=== PATIENT | female | born 1990 | race African-American/Black ===

== ENCOUNTER 2019-09-18 18:49 | Emergency (ER) | payer OTHER, SELFPAY ==
--- NOTE | ~2019-09-18 | XR_ITS ---
XR ankle LT min 3V 09/18/2019 19:55 INDICATION: Left ankle pain PROCEDURE: 4 views left ankle COMPARISON: No prior studies for comparison. FINDINGS: Fracture, dislocation or subluxation is not identified. The soft tissues appear within norm al limits. No foreign bodies are identified. IMPRESSION: 1: NO ACUTE BONE OR JOINT ABNORMALITY IDENTIFIED. Reviewed, dictated and finalized at location A.
[2019-09-18 18:57] VITALS: BP 148/107; PULSE 72; RESP 15; TEMP 37; O2SAT 100
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
[2019-09-18] MEDS: TETANUS,DIPHTHERIA,AC PERTUSSIS ADULT (0.5 ML) BOOSTRIX IM (20:32)
[2019-09-18 21:48] VITALS: BP 139/77; PULSE 70; RESP 16; O2SAT 99
== END 2019-09-18 22:09 | disposition home or self-care (01) ==
PROVIDERS: Emergency Provider Nurse Practitioner Family
DX: L03.116 Cellulitis of left lower limb (principal); S99.912A Unspecified injury of left ankle, initial encounter; R03.0 Elevated blood-pressure reading, without diagnosis of hypertension; Z23 Encounter for immunization; V09.20XA Pedestrian injured in traffic accident involving unspecified motor vehicles, initial encounter
CPT/HCPCS: 73610; 81025; 90471; 90715; 99283; A9270

== ENCOUNTER 2019-11-23 20:05 | Emergency (ER) | payer OTHER, SELFPAY ==
--- NOTE | ~2019-11-23 | XR_ITS ---
EXAMINATION: XR chest 2V DATE: 11/23/2019 21:12 INDICATION: Chest pain TECHNIQUE: PA and lateral views of the chest are obtained. COMPARISON: None available FINDINGS: There are minimal airspace opacities of the lung bases. There is no pleural effusion or pne umothorax. The cardiomediastinal silhouette is normal. The visualized bones and soft tissues are unre markable. IMPRESSION: 1. Minimal airspace opacities of the lung bases, consistent with atelectasis versus pneumonia. Reviewed, dictated and finalized at location A. IMPRESSION: 1. Minimal airspace opacities of the lung bases, consistent with atelectasis ve rsus pneumonia.
[2019-11-23 20:07] VITALS: BP 152/93; PULSE 89; RESP 18; TEMP 35.8; O2SAT 99
--- NOTE | 2019-11-23 20:11 | ECG_ITS ---
Measurements Intervals [place] Rate: 78 P: 33 WI: 166 QRS: 39 QRSD: 97 T: 25 QT: 402 QTc: 458 Interpretive Statements SINUS RHYTHM DELAYED PRECORDIAL R/S TRANSITION BORDERLINE ECG Electronically Signed On 11-24-2019 6:38:29 CDT by Ke Giron D.O.
[2019-11-23 20:28] LABS: Basophils Absolute Auto 0.1 K/mm3 (0.0-0.1); Basophils Percent Auto 0.9 % (0.2-1.2); Eosinophils Absolute Auto 0.3 K/mm3 (0-0.3); Eosinophils Percent Auto 2.8 % (0-4.4); Hematocrit 42.2 % (37.0-47.0); Hemoglobin 13.5 g/dL (12.0-15.0); Immature Granulocyte Absolute 0.02 K/mm3 (0.00-0.031); Immature Granulocyte Percent A 0.2 % (0-0.5); Lymphocytes Absolute Auto 2.69 K/mm3 (0.9-3.2); Lymphocytes Percent Auto 27.9 % (18.3-44.2); Mean Corpuscular Hemoglobin 28.4 pg (26-34); Mean Corpuscular Volume 88.7 fl (80-100); Mean Platelet Volume 10.5 fl (7.4-10.4); Monocytes Absolute Auto 0.8 K/mm3 (0.1-0.6); Monocytes Percent Auto 8.1 % (2.6-8.5); Neutrophils Absolute Auto 5.8 K/mm3 (1.3-6.7); Neutrophils Percent Auto 60.1 % (45.5-73.1); Platelet Count Result 362 k/mm3 (150-375); Red Blood Count 4.76 M/mm3 (4.2-5.4); Red Cell Distribution Width 14.5 % (11.5-14.5); White Blood Count 9.6 K/mm3 (4.5-10.0)
[2019-11-23 20:38] LABS: Prothrombin Time 13.1 Seconds (11.1-14.7)
[2019-11-23 20:39] LABS: Partial Thromboplastin Time 26.8 SECONDS (22.3-36.8)
[2019-11-23 20:43] LABS: Anion Gap 12 mmol/L (8-16); Blood Urea Nitrogen 9 mg/dL (7-17); Calcium 9.4 mg/dL (8.4-10.2); Carbon Dioxide 24 mmol/L (22-30); Chloride 103 mmol/L (98-107); Estimated Glomerular Filt Rate > 60; Glucose 127 mg/dL (65-105); Potassium 3.7 mmol/L (3.4-5.0); Sodium 139 mmol/L (137-145)
[2019-11-23 20:55] LABS: Troponin I < 0.012 ng/mL (0.000-0.034)
[2019-11-23 22:49] VITALS: BP 134/80; PULSE 84; RESP 20; O2SAT 100; O2SAT 99
[2019-11-23] MEDS: KETOROLAC 30 MG/ML VIAL (*BKC) IV PUSH (23:14)
[2019-11-23 23:15] VITALS: BP 142/99; PULSE 76; RESP 16; O2SAT 100
[2019-11-23 23:34] LABS: D Dimer 0.32 ug/mL (<0.48)
[2019-11-23 23:44] VITALS: TEMP 35.8
[2019-11-23 23:45] LABS: Troponin I < 0.012 ng/mL (0.000-0.034)
--- NOTE | 2019-11-24 00:39 | ED.CHESTPAIN ---
HPI - Chest Pain General Chief Complaint: Chest Pain Stated Complaint: chest pain Time Seen by Provider: 11/23/19 22:42 History of Present Illness HPI narrative: Patient is a 29-year-old female who presents ER with right-sided chest pain. Upper and anterior chest wall as well as under the right breast. Pain is worse with physical movement and deep breath. Improves modestly with [id number] pain medication. No exertional component. Denies fevers or sweats or chills. No recent runny nose/sore throat/productive cough. No recent long distance travel, no hemoptysis, she is not on hormones, no recent surgeries. No lower extremity edema. Related Data Home Medications Medication Instructions Recorded Confirmed albuterol sulfate INHALATION 11/23/19 Allergies Allergy/AdvReac Type Severity Reaction Status Date / Time No Known Allergies Allergy Verified 09/18/19 19:05 Review of Systems Review of Systems: All systems reviewed & are unremarkable except as noted in HPI and below Constitutional: Constitutional: Denies chills, Denies fever(s) and Denies weakness ENT: Denies nasal congestion and Denies sore throat Cardiovascular: Cardiovascular: Reports chest pain, Denies rapid heart rate and Denies radiating jaw, neck or arm pain Respiratory: Respiratory: Denies chest congestion, Denies cough and Denies dyspnea Gastrointestinal: Gastrointestinal: Denies abdominal pain, Denies nausea and Denies vomiting Musculoskeletal: Musculoskeletal: Denies back pain and Denies muscle cramps PMFSH Past Medical History Medical History (Updated 11/24/19 @ 00:43 by Dino Valencia MD) Healthy female adult Surgical History Surgical History (Updated 11/24/19 @ 00:40 by Dino Valencia MD) No history of previous surgery Social History Social History (Updated 11/24/19 @ 00:40 by Dino Valencia MD) Smoking status: Current every day smoker Gender identity (if verbalized by the patient): Female Exam Narrative: Exam Narrative: GENERAL: Well-appearing, well-nourished, and in no acute distress. HEAD: Normocephalic, atraumatic. ENT: Mucous membranes moist. CHEST: Clear to auscultation. No respiratory distress. HEART: Regular rate and rhythm. Normal peripheral pulses. ABDOMEN: Soft, nontender, nondistended. EXTREMITIES: Normal range of motion. No edema. NEURO: Alert and oriented x3. PSYCH: Normal mood and affect. Course Course Emergency Course: Informed of results. Pain improved with Toradol. Discharge home with supportive therapy. Vital Signs Vital signs: Vital Signs Temperature 96.4 F L 11/23/19 20:07 Pulse Rate 89 11/23/19 20:07 Respiratory Rate 18 11/23/19 20:07 Blood Pressure 152/93 H 11/23/19 20:07 Pulse Oximetry 99 11/23/19 20:07 Temperature 96.4 F L 11/23/19 23:44 Pulse Rate 76 11/23/19 23:15 Respiratory Rate 16 11/23/19 23:15 Blood Pressure 142/99 H 11/23/19 23:15 Pulse Oximetry 100 11/23/19 23:15 MDM - Chest Pain Lab Data Result diagrams: 11/23/19 20:22 11/23/19 20:22 Labs: Lab Results 11/23/19 11/23/19 11/23/19 Range/Units 20:22 20:22 20:22 WBC 9.6 (4.5-10.0) K/mm3 RBC 4.76 (4.2-5.4) M/mm3 Hgb 13.5 (12.0-15.0) g/dL Hct 42.2 (37.0-47.0) % MCV 88.7 (80-100) fl MCH 28.4 (26-34) pg MCHC 32.0 (32-36) g/dl RDW 14.5 (11.5-14.5) % Plt Count 362 (150-375) k/mm3 MPV 10.5 H (7.4-10.4) fl Immature Gran % (Auto) 0.2 (0-0.5) % Neut % (Auto) 60.1 (45.5-73.1) % Lymph % (Auto) 27.9 (18.3-44.2) % [place] % (Auto) 8.1 (2.6-8.5) % Eos % (Auto) 2.8 (0-4.4) % Baso % (Auto) 0.9 (0.2-1.2) % Lymph # (Auto) 2.69 (0.9-3.2) K/mm3 [place] # (Auto) 0.8 H (0.1-0.6) K/mm3 Eos # (Auto) 0.3 (0-0.3) K/mm3 Baso # (Auto) 0.1 (0.0-0.1) K/mm3 Abs Immat Gran (auto) 0.02 (0.00-0.031) K/mm3 Absolute Neuts (auto) 5.8 (1.3-6.7) K/mm3 Absolute Nucle
[2019-11-24 00:53] VITALS: BP 118/72; PULSE 75; RESP 15; TEMP 36.6; O2SAT 100
== END 2019-11-24 00:57 | disposition home or self-care (01) ==
PROVIDERS: Emergency Provider Emergency Medicine; Referring Provider Emergency Medicine
DX: R09.1 Pleurisy (principal)
CPT/HCPCS: 36415; 71046; 80048; 84484; 85025; 85380; 85610; 85730; 93005; 96374; 99284; J1885

== ENCOUNTER 2019-12-15 15:02 | Emergency (ER) | payer OTHER, SELFPAY ==
--- NOTE | ~2019-12-15 | XR_ITS ---
EXAMINATION: XR chest 2V DATE: 12/15/2019 16:16 INDICATION: Right chest pain. TECHNIQUE: Frontal and lateral views of the chest were obtained. COMPARISON: Chest 2 views 11/23/2019 FINDINGS: The chest demonstrates clear lungs without pneumonia, pleural effusion, or pneumothorax. Th e heart size is normal. IMPRESSION: 1. No acute cardiopulmonary disease. Reviewed, dictated and finalized at location A.
[2019-12-15 15:04] VITALS: BP 158/60; PULSE 88; RESP 18; TEMP 36.1; O2SAT 100
--- NOTE | 2019-12-15 16:23 | ED.GENADULT ---
HPI - General Adult General Chief complaint: Unspecified Stated complaint: chest pain Time Seen by Provider: 12/15/19 15:59 Source: patient History of Present Illness HPI narrative: 29-year-old female presents to emergency department for intermittent right-sided chest pain for the past month, progressively worsening. Patient states she took naproxen about 1 month ago to help with the pain. She states pain is worse with deep breaths. Patient states the pain wraps around to the right side of her chest. No shortness of breath. No fever or chills. No abdominal pain. No nausea or vomiting. Last menstrual period was around November 30. Related Data Home Medications Medication Instructions Recorded Confirmed albuterol sulfate INHALATION 11/23/19 Allergies Allergy/AdvReac Type Severity Reaction Status Date / Time No Known Allergies Allergy Verified 12/15/19 16:23 Review of Systems Review of Systems: Narrative: CONSTITUTIONAL: Denies fever, chills, or sweats. EYES: Denies visual changes, redness, or discharge. ENT: Denies rhinorrhea, congestion, sore throat, or otalgia. CARDIOVASCULAR: Reports chest pain, denies palpitations, and denies edema. RESPIRATORY: Denies cough or dyspnea. GASTROINTESTINAL: Denies abdominal pain, nausea, vomiting, or diarrhea. GENITOURINARY: Denies dysuria or hematuria. SKIN: Denies rash or itching. MUSCULOSKELETAL: Denies back pain, joint pain, or myalgia. NEUROLOGIC: Denies headache, numbness, dizziness, or weakness. PSYCHIATRIC: Denies anxiety or depression. PMFSH Past Medical History Medical History Healthy female adult Surgical History Surgical History No history of previous surgery Social History Social History Smoking status: Current every day smoker Gender identity (if verbalized by the patient): Female Exam Narrative: Exam Narrative: GENERAL: Well-appearing, well-nourished, and in no acute distress. HEAD: Normocephalic, atraumatic. EYES: PERRLA and EOMI. ENT: Nares clear, no rhinorrhea or epistaxis. Mucous membranes moist. NECK: Supple. CHEST: Clear to auscultation. No respiratory distress. HEART: Regular rate and rhythm. No murmur heard. Normal peripheral pulses. ABDOMEN: Soft, nontender, nondistended, normal active bowel sounds. EXTREMITIES: Normal range of motion. No edema. SKIN: Warm, dry, no rash. NEURO: No focal deficits. Alert and oriented x3. PSYCH: Normal mood and affect. Course Reevaluation(s) Reevaluation #1: 1810 -reevaluated patient, no new complaints. Pain likely musculoskeletal, patient states the pain is worse at work. Low suspicion for ACS at this time. Additionally low suspicion for PE at this time. Counseled patient to follow-up with a medical provider within 1 week. Return to emergency department if symptoms persist, worsen, or other concerns. Vital Signs Vital signs: Vital Signs Temperature 36.1 C L 12/15/19 15:04 Pulse Rate 88 12/15/19 15:04 Respiratory Rate 18 12/15/19 15:04 Blood Pressure 158/60 H 12/15/19 15:04 Pulse Oximetry 100 12/15/19 15:04 Temperature 36.7 C 12/15/19 18:25 Pulse Rate 74 12/15/19 18:25 Respiratory Rate 18 12/15/19 18:25 Blood Pressure 124/77 12/15/19 18:25 Pulse Oximetry 99 12/15/19 18:25 Medical Decision Making Medical Records Medical records reviewed: Yes I reviewed the patient's medical records. Vital Signs Vital Signs: Vital Signs Temperature 36.1 C L 12/15/19 15:04 Pulse Rate 88 12/15/19 15:04 Respiratory Rate 18 12/15/19 15:04 Blood Pressure 158/60 H 12/15/19 15:04 Pulse Oximetry 100 12/15/19 15:04 Temperature 36.7 C 12/15/19 18:25 Pulse Rate 74 12/15/19 18:25 Respiratory Rate 18 12/15/19 18:25 Blood Pressure 124/77 12/15/19 18:25 Pulse Oximetry 99 12/15/19 18:25
--- NOTE | 2019-12-15 16:26 | ECG_ITS ---
Measurements Intervals [place] Rate: 73 P: 55 [place]: 169 QRS: 20 QRSD: 98 T: 15 QT: 387 QTc: 427 Interpretive Statements SINUS RHYTHM BASELINE ARTIFACT- I, III, V5-V6 NORMAL ECG Electronically Signed On 12-15-2019 16:45:58 CDT by Ke Giron D.O.
[2019-12-15] MEDS: KETOROLAC (*BKC) 60 MG/2 ML VIAL 30 MG IM (17:00)
[2019-12-15 18:25] VITALS: BP 124/77; PULSE 74; RESP 18; TEMP 36.7; O2SAT 99
== END 2019-12-15 18:26 | disposition home or self-care (01) ==
PROVIDERS: Emergency Provider Emergency Medicine
DX: R07.89 Other chest pain (principal); F17.200 Nicotine dependence, unspecified, uncomplicated
CPT/HCPCS: 71046; 93005; 96372; 99283; J1885

== ENCOUNTER 2020-03-24 13:59 | Emergency (ER) | payer OTHER, SELFPAY ==
--- NOTE | ~2020-03-24 | CT_ITS ---
EXAMINATION: CT brain wo con DATE: 03/24/2020 15:18 INDICATION: Headache. Syncope. TECHNIQUE: Computed tomography (CT) of the head was performed without intravenous contrast. The mA wa s adjusted according to patient size. Iterative reconstruction technique was employed. The dose-lengt h product was 605.33 mGy-cm. COMPARISON: None FINDINGS: There is no intracranial hemorrhage, acute infarction, or abnormal intracranial mass lesion . The ventricles are normal in size. The orbits are normal. There is mild mucosal thickening in the e thmoid sinuses. The mastoid air cells are normal. IMPRESSION: 1. Normal brain. Reviewed, dictated and finalized at location A. NCE INTERN IMPRESSION: 1. Normal brain.
--- NOTE | ~2020-03-24 | CT_ITS ---
EXAMINATION: CT cervical spine wo [facility] EXAM DATE: 03/24/2020 15:18 INDICATION: fall syncope. Head injury. TECHNIQUE: Spiral CT of the cervical spine was performed without contrast. Axial images were reviewe d. Coronal and sagittal reformatted images were also reviewed. The dose-length product (DLP) for thi s examination was 433.68 mGy-cm. The exposure was tailored according to patient size (auto mA exposu re control), and iterative reconstruction (ASIR) was used as additional dose reduction technique. ere is no prior study for comparison. FINDINGS: There is no evidence of acute cervical fracture. The odontoid process is intact. Pre-dens space is normal. Prevertebral soft tissue is normal. There are no soft tissue abnormalities identi fied. There is no disc space widening or traumatic vertebral body subluxation suspected. Vertebral body and disc heights are well-maintained. No more than mild cervical spondylosis. A detailed level b y level evaluation of spondylosis can be added as addendum if requested. IMPRESSION: 1. No acute cervical fracture. Reviewed, dictated and finalized at location B. OR VIDEOTAPE EDITOR
[2020-03-24 14:26] VITALS: BP 151/95; PULSE 100; RESP 18; TEMP 36.3; O2SAT 99
--- NOTE | 2020-03-24 14:42 | ED.GENADULT ---
HPI - General Adult General Chief complaint: Headache Stated complaint: headache post fall down 10 stairs Time Seen by Provider: 03/24/20 14:32 Source: patient Mode of arrival: ambulatory Limitations: no limitations History of Present Illness HPI narrative: Patient is a 29-year-old female who presents to emergency department for evaluation of head injury and neck pain after falling down 10 stairs patient notes having tripped and gone down the stairs striking the face and head and injuring the neck had syncope after the head injury patient on arrival to emergency department in the room and no obvious distress does not appear uncomfortable patient notes she has had nausea lightheadedness dizziness and light and noise sensitivity since the injury has not been seen presents for private vehicle Related Data Home Medications Medication Instructions Recorded Confirmed albuterol sulfate INHALATION 11/23/19 Allergies Allergy/AdvReac Type Severity Reaction Status Date / Time No Known Allergies Allergy Verified 12/15/19 16:23 Review of Systems Review of Systems: All systems reviewed & are unremarkable except as noted in HPI and below PMFSH Past Medical History Medical History Healthy female adult Surgical History Surgical History No history of previous surgery Social History Social History Smoking status: Current every day smoker Gender identity (if verbalized by the patient): Female Exam Narrative: Exam Narrative: GENERAL: Well-appearing, well-nourished, and in no acute distress. HEAD: Normocephalic, atraumatic. EYES: PERRLA and EOMI. ENT: Nares clear, no rhinorrhea or epistaxis. Mucous membranes moist. NECK: Supple. No adenopathy or masses. CHEST: Clear to auscultation. No respiratory distress. No wheezes rales or rhonchi HEART: Regular rate and rhythm. No murmur heard. EXTREMITIES: Normal range of motion. No edema. Midline cervical tenderness remainder of spine nontender SKIN: Warm, dry, no rash. NEURO: No focal deficits. Alert and oriented x3. Cranial nerves II through XII grossly intact. Normal speech. Normal gait PSYCH: Normal mood and affect. Course Course Emergency Course: Patient evaluated for head injury and syncope no high risk changes in the imaging will be discharged home managed on outpatient basis provided with reasons to return vital signs and ABCs intact and stable Vital Signs Vital signs: Vital Signs Temperature 97.3 F L 03/24/20 14:26 Pulse Rate 100 03/24/20 14:26 Respiratory Rate 18 03/24/20 14:26 Blood Pressure 151/95 H 03/24/20 14:26 Pulse Oximetry 99 03/24/20 14:26 Temperature 97.3 F L 03/24/20 14:26 Pulse Rate 100 03/24/20 14:26 Respiratory Rate 18 03/24/20 14:26 Blood Pressure 151/95 H 03/24/20 14:26 Pulse Oximetry 99 03/24/20 14:26 Medical Decision Making MDM Narrative Medical decision making narrative: Patient presented with head injury and syncope no high risk changes in the imaging will be discharged home felt to be safe for outpatient reevaluation hemodynamically stable Vital Signs Vital Signs: Vital Signs Temperature 97.3 F L 03/24/20 14:26 Pulse Rate 100 03/24/20 14:26 Respiratory Rate 18 03/24/20 14:26 Blood Pressure 151/95 H 03/24/20 14:26 Pulse Oximetry 99 03/24/20 14:26 Temperature 97.3 F L 03/24/20 14:26 Pulse Rate 100 03/24/20 14:26 Respiratory Rate 18 03/24/20 14:26 Blood Pressure 151/95 H 03/24/20 14:26 Pulse Oximetry 99 03/24/20 14:26 Imaging Data Radiologist's impression: ITS Impressions Head CT 03/24/20 15:23 IMPRESSION: 1. Normal brain. Cervical Spine CT 03/24/20 15:27 IMPRESSION: 1. No acute cervical fracture. Discharge Plan Discharge Clinical Impression: Headache, Sy
[2020-03-24 16:08] VITALS: BP 117/65; PULSE 78; RESP 16; O2SAT 100
== END 2020-03-24 16:09 | disposition home or self-care (01) ==
PROVIDERS: Emergency Provider Emergency Medicine
DX: S16.1XXA Strain of muscle, fascia and tendon at neck level, initial encounter (principal); R55 Syncope and collapse; R51.9 Headache, unspecified; F17.290 Nicotine dependence, other tobacco product, uncomplicated; W10.9XXA Fall (on) (from) unspecified stairs and steps, initial encounter
CPT/HCPCS: 70450; 72125; 99284

== ENCOUNTER 2021-05-08 10:36 | Emergency (ER) | payer OTHER, SELFPAY ==
--- NOTE | ~2021-05-08 | US_ITS ---
EXAMINATION: US OB <=14 wk fetus w TV DATE: 05/08/2021 12:16 INDICATION: Pelvic pain and spotting during first trimester . TECHNIQUE: Real-time pelvic ultrasound utilizing both a transvaginal and transabdominal probe was pe rformed. The interpreting radiologist was not present for the study. COMPARISON: None. FINDINGS: The uterus measures 8.4 x 4.1 x 4.4 cm. There is an intrauterine gestational sac. A yolk sac is iden tified but no pole yet discernible. The mean sac diameter measures 6 mm. The right ovary measures 2.9 x 1.6 x 1.7 cm. The left ovary measures 3.8 x 1.8 x 1.4 cm. 1.5 cm thick -walled corpus luteum cyst in the left ovary. There is an additional 2.1 cm anechoic left ovarian cys t. There is no free fluid in the pelvis. IMPRESSION: 1. 6 mm intrauterine gestational sac with tiny yolk sac but no discernible pole yet apparent li gallito due to early stage of .. Reviewed, dictated and finalized at location A. IMPRESSION: 1. 6 mm intrauterine gestational sac with tiny yolk sac but no discernible feta l pole yet apparent likely due to early stage of ..
[2021-05-08 10:43] VITALS: BP 142/92; PULSE 76; RESP 20; TEMP 36.9; O2SAT 100
--- NOTE | 2021-05-08 11:38 | PC.NURSE ---
pt. to XR
[2021-05-08 12:14] LABS: Basophils Absolute Auto 0.1 K/mm3 (0.0-0.1); Basophils Percent Auto 0.8 % (0.2-1.2); Eosinophils Absolute Auto 0.1 K/mm3 (0-0.3); Eosinophils Percent Auto 0.8 % (0-4.4); Hematocrit 41.9 % (37.0-47.0); Hemoglobin 13.4 g/dL (12.0-15.0); Immature Granulocyte Absolute 0.01 K/mm3 (0.00-0.031); Immature Granulocyte Percent A 0.1 % (0-0.5); Lymphocytes Absolute Auto 2.07 K/mm3 (0.9-3.2); Mean Corpuscular Hemoglobin 28.8 pg (26-34); Mean Corpuscular Volume 89.9 fl (80-100); Monocytes Absolute Auto 0.7 K/mm3 (0.1-0.6); Monocytes Percent Auto 9.4 % (2.6-8.5); Neutrophils Absolute Auto 4.3 K/mm3 (1.3-6.7); Neutrophils Percent Auto 59.9 % (45.5-73.1); Platelet Count Result 341 k/mm3 (150-375); Red Blood Count 4.66 M/mm3 (4.2-5.4); Red Cell Distribution Width 14.1 % (11.5-14.5); White Blood Count 7.1 K/mm3 (4.5-10.0)
[2021-05-08 12:15] VITALS: BP 147/89; PULSE 73; RESP 17; O2SAT 99
[2021-05-08 12:40] VITALS: BP 137/85; PULSE 75; RESP 21; O2SAT 98
[2021-05-08 12:41] VITALS: BP 150/69; BP 154/91; BP 162/94; PULSE 69; PULSE 84; PULSE 88
--- NOTE | 2021-05-08 12:53 | ED.FEMALEGU ---
HPI - Female Genitourinary General Chief complaint: Vaginal Bleeding Stated complaint: vag bld, 6 wks preg Time Seen by Provider: 05/08/21 11:17 Source: patient History of Present Illness HPI Narrative: Patient presents with vaginal bleeding she is between 6 to 8 weeks she is unsure of her last LMP. She is coming today for lower abdominal cramping and vaginal bleeding. She describes spotting. She denies any chest pain lightheadedness, dizziness, diaphoresis. She denies any urinary symptoms. Related Data Home Medications Medication Instructions Recorded Confirmed albuterol sulfate INHALATION 11/23/19 Allergies Allergy/AdvReac Type Severity Reaction Status Date / Time No Known Allergies Allergy Verified 12/15/19 16:23 Review of Systems Review of Systems: CONSTITUTIONAL: Denies fever, chills, or sweats. EYES: Denies visual changes, redness, or discharge. ENT: Denies rhinorrhea, congestion, sore throat, or otalgia. CARDIOVASCULAR: Denies chest pain, palpitations, or edema. RESPIRATORY: Denies cough or dyspnea. GASTROINTESTINAL: Denies abdominal pain, nausea, vomiting, or diarrhea. GENITOURINARY: Denies dysuria or hematuria. SKIN: Denies rash or itching. MUSCULOSKELETAL: Denies back pain, joint pain, or myalgia. NEUROLOGIC: Denies headache, numbness, dizziness, or weakness. PSYCHIATRIC: Denies anxiety or depression. All systems reviewed & are unremarkable except as noted in HPI and below PMFSH Past Medical History Medical History Healthy female adult Surgical History Surgical History No history of previous surgery Social History Social History Smoking status: Current every day smoker Gender identity (if verbalized by the patient): Female Exam Narrative: GENERAL: Well-appearing, well-nourished, and in no acute distress. HEAD: Normocephalic, atraumatic. EYES: PERRLA and EOMI. ENT: Nares clear, no rhinorrhea or epistaxis. Mucous membranes moist. NECK: Supple. No masses. No JVD CHEST: Clear to auscultation. No respiratory distress. No wheezes rales or rhonchi HEART: Regular rate and rhythm. No murmur heard. Normal peripheral pulses. ABDOMEN: Soft, nontender, nondistended, normal active bowel sounds. EXTREMITIES: Normal range of motion. No edema. SKIN: Warm, dry, no rash. NEURO: No focal deficits. Alert and oriented x3. PSYCH: Normal mood and affect. Course Reevaluation(s) Reevaluation #1: Patient resting comfortably results and plan reviewed with patient. Patient comfortable outpatient plan. Date: 05/08/21 Time: 12:54 Vital Signs Vital signs: Vital Signs Temperature 36.9 C 05/08/21 10:43 Pulse Rate 76 05/08/21 10:43 Respiratory Rate 20 05/08/21 10:43 Blood Pressure 142/92 H 05/08/21 10:43 Pulse Oximetry 100 05/08/21 10:43 Temperature 36.9 C 05/08/21 10:43 Pulse Rate 81 05/08/21 13:03 Respiratory Rate 14 05/08/21 13:03 Blood Pressure 135/81 05/08/21 13:03 Pulse Oximetry 100 05/08/21 13:03 MDM - Female Genitourinary MDM Narrative Medical decision making narrative: H&P as above, vs with hypertension. Patient has multiple prior hypertensive, blood pressures documented. Pt looks clinically well, exam reassuring, labs Rh+, img with likely early IUP, additional labs/img considered, symptomatic relief available as needed, on reevaluation pt continues to looks clinically well. Suspect that miscarriage, dns significant hemorrhage, ectopic. plan to tx/monitor as op w/ pcm f/u findings/plan discussed with pt, pt agree/comfortable with plan, return precautions given Lab Data Result diagrams: 05/08/21 12:07 Labs: Lab Results 05/08/21 05/08/21 05/08/21 Range/Units 12:07 12:07 12:07 WBC 7.1 (4.5-10.0) K/mm3 RBC 4.66 (4.2-5.4) M/mm3 Hgb 13.4 (12.0-15.0) g/d
[2021-05-08 13:03] VITALS: BP 135/81; PULSE 81; RESP 14; O2SAT 100
== END 2021-05-08 13:10 | disposition home or self-care (01) ==
PROVIDERS: Emergency Provider Emergency Medicine
DX: O20.0 Threatened abortion (principal); O16.1 Unspecified maternal hypertension, first trimester; O99.331 Smoking (tobacco) complicating pregnancy, first trimester; F17.200 Nicotine dependence, unspecified, uncomplicated; Z3A.01 Less than 8 weeks gestation of pregnancy
CPT/HCPCS: 36415; 76801; 76817; 84702; 85025; 85461; 99284

== ENCOUNTER 2021-08-20 17:40 | Emergency (ER) | payer OTHER, SELFPAY ==
--- NOTE | ~2021-08-20 | XR_ITS ---
EXAMINATION: XR chest 2V Exam Date/Time: 08/20/2021 18:20 CDT HISTORY: MID-LEFT SIDED CP, HTN, N/HEADACHE TODAY Comparison: 12/15/2019. RESULT: Lines, tubes, and devices: None. Lungs and pleura: Clear. Cardiomediastinal silhouette: Stable cardiomediastinal silhouette. Other: No acute osseous or upper abdominal finding. IMPRESSION: No acute cardiopulmonary process. Reviewed, dictated and finalized at location K.
--- NOTE | 2021-08-20 17:43 | ECG_ITS ---
Measurements Intervals [place] Rate: 70 P: 36 NM: 154 QRS: 15 QRSD: 87 T: 27 QT: 457 QTc: 493 Interpretive Statements SINUS RHYTHM MINIMAL Q WAVES- INFERIOR LEADS BASELINE ARTIFACT- II, III, AVF BORDERLINE ECG Electronically Signed On 08-20-2021 21:06:54 CDT by Ke Giron D.O.
[2021-08-20 17:46] VITALS: BP 193/99; PULSE 64; RESP 16; O2SAT 100
[2021-08-20 17:59] LABS: Basophils Absolute Auto 0.1 K/mm3 (0.0-0.1); Eosinophils Percent Auto 0.5 % (0-4.4); Hematocrit 45.3 % (37.0-47.0); Hemoglobin 14.5 g/dL (12.0-15.0); Immature Granulocyte Absolute 0.02 K/mm3 (0.00-0.031); Immature Granulocyte Percent A 0.2 % (0-0.5); Lymphocytes Absolute Auto 1.98 K/mm3 (0.9-3.2); Lymphocytes Percent Auto 24.5 % (18.3-44.2); Mean Corpuscular Hemoglobin 27.6 pg (26-34); Mean Corpuscular Volume 86.3 fl (80-100); Mean Platelet Volume 9.7 fl (7.4-10.4); Monocytes Absolute Auto 0.7 K/mm3 (0.1-0.6); Monocytes Percent Auto 8.5 % (2.6-8.5); Neutrophils Absolute Auto 5.3 K/mm3 (1.3-6.7); Neutrophils Percent Auto 65.3 % (45.5-73.1); Platelet Count Result 344 k/mm3 (150-375); Red Blood Count 5.25 M/mm3 (4.2-5.4); Red Cell Distribution Width 15.6 % (11.5-14.5); White Blood Count 8.1 K/mm3 (4.5-10.0)
[2021-08-20 18:08] LABS: Alanine Aminotransferase 121 U/L (6-35); Albumin Level 4.8 g/dL (3.5-5.1); Alkaline Phosphatase 134 U/L (38-126); Anion Gap 12 mmol/L (8-16); Aspartate Amino Transferase 151 U/L (14-36); Blood Urea Nitrogen 8 mg/dL (7-17); Calcium 9.2 mg/dL (8.4-10.2); Carbon Dioxide 24 mmol/L (22-30); Chloride 100 mmol/L (98-107); Estimated CRCL calculation 142 ml/min; Estimated Glomerular Filt Rate > 60; Glucose 98 mg/dL (65-110); Lipase 124 U/L (23-300); Potassium 3.7 mmol/L (3.4-5.0); Sodium 136 mmol/L (137-145)
[2021-08-20 18:11] LABS: INR 1.2; Prothrombin Time 14.5 Seconds (11.1-14.7)
[2021-08-20 18:20] LABS: Troponin I < 0.012 ng/mL (0.000-0.034)
--- NOTE | 2021-08-20 18:45 | ED.CHESTPAIN ---
HPI - Chest Pain General Chief Complaint: Chest Pain Stated Complaint: RILEY,CHEST PAIN Time Seen by Provider: 08/20/21 18:21 History of Present Illness HPI narrative: Patient presents with chest pain headache and high blood pressure. Patient ports her symptoms started last night have persisted so she came to the ER for further evaluation. Sure she has not taken any medications was just trying to rest today without relief of her symptoms. Sure she has left-sided chest pain that sharp no radiation no clear aggravating or alleviating factors. She also reports a bilateral temporal headache described as a pressure no clear aggravating relieving factors no radiation. She has any nausea vomiting or diarrhea. She denies any change in vision or focal numbness or weakness. Related Data Home Medications Medication Instructions Recorded Confirmed No Home Medications 08/20/21 08/20/21 Allergies Allergy/AdvReac Type Severity Reaction Status Date / Time No Known Allergies Allergy Verified 12/15/19 16:23 Review of Systems Review of Systems: CONSTITUTIONAL: Denies fever, chills, or sweats. EYES: Denies visual changes, redness, or discharge. ENT: Denies rhinorrhea, congestion, sore throat, or otalgia. CARDIOVASCULAR: Denies palpitations, or edema. RESPIRATORY: Denies cough or dyspnea. GASTROINTESTINAL: Denies abdominal pain, nausea, vomiting, or diarrhea. GENITOURINARY: Denies dysuria or hematuria. SKIN: Denies rash or itching. MUSCULOSKELETAL: Denies back pain, joint pain, or myalgia. NEUROLOGIC: Denies numbness, dizziness, or weakness. PSYCHIATRIC: Denies anxiety or depression. All systems reviewed & are unremarkable except as noted in HPI and below PMFSH Past Medical History Medical History Healthy female adult Surgical History Surgical History No history of previous surgery Social History Social History Smoking status: Current every day smoker Gender identity (if verbalized by the patient): Female Exam Narrative: GENERAL: Well-appearing, well-nourished, and in no acute distress. HEAD: Normocephalic, atraumatic. EYES: PERRLA and EOMI. ENT: Nares clear, no rhinorrhea or epistaxis. Mucous membranes moist. NECK: Supple. No masses. No JVD CHEST: Clear to auscultation. No respiratory distress. No wheezes rales or rhonchi HEART: Regular rate and rhythm. No murmur heard. Normal peripheral pulses. ABDOMEN: Soft, nontender, nondistended, normal active bowel sounds. EXTREMITIES: Normal range of motion. No edema. SKIN: Warm, dry, no rash. NEURO: No focal deficits. Alert and oriented x3. PSYCH: Normal mood and affect. Course Reevaluation(s) Reevaluation #1: Patient sleeping comfortably easily awoke patient reports feeling much improved results and plan reviewed with patient. Patient is comfortable outpatient plan. Date: 08/20/21 Time: 20:12 Vital Signs Vital signs: Vital Signs Pulse Rate 64 08/20/21 17:46 Respiratory Rate 16 08/20/21 17:46 Blood Pressure 193/99 H 08/20/21 17:46 Pulse Oximetry 100 08/20/21 17:46 Oxygen Delivery Room Air 08/20/21 17:46 Pulse Rate 88 08/20/21 20:28 Respiratory Rate 16 08/20/21 20:14 Blood Pressure 175/101 H 08/20/21 20:14 Pulse Oximetry 99 08/20/21 20:14 Oxygen Delivery Room Air 08/20/21 17:46 MDM - Chest Pain MDM Narrative Medical decision making narrative: H&P as above, vs initially with hypertension improving with supportive therapies. pt looks clinically well, exam without focal neurological deficits, labs with mild elevation LFTs otherwise clinically unremarkable, img without acute process, additional labs/img considered, symptomatic relief available as needed, on reevaluation pt continues to looks clinically well. Symptoms remain of unclear etiology and were with reassur
[2021-08-20] MEDS: PROCHLORPERAZINE EDISYLATE 10 MG/2 ML VIAL IV PUSH (19:09)
[2021-08-20] MEDS: SODIUM CHLORIDE 0.9% IV 1,000 ML 999 ML IV CONT (19:10)
[2021-08-20] MEDS: KETOROLAC 15 MG/ML VIAL (*BKC) IV PUSH (19:10)
[2021-08-20 20:14] VITALS: BP 175/101; PULSE 86; RESP 16; O2SAT 99
[2021-08-20 20:28] VITALS: PULSE 88
== END 2021-08-20 20:28 | disposition home or self-care (01) ==
PROVIDERS: Emergency Medicine; Emergency Provider Emergency Medicine
DX: R07.9 Chest pain, unspecified (principal); R51.9 Headache, unspecified; R03.0 Elevated blood-pressure reading, without diagnosis of hypertension; F17.200 Nicotine dependence, unspecified, uncomplicated; R94.31 Abnormal electrocardiogram [ECG] [EKG]
CPT/HCPCS: 36415; 71046; 80053; 83690; 84484; 85025; 85610; 85730; 93005; 96361; 96374; 96375; 99284; J0780; J1885; J7030